=== PATIENT | female | born 1985 | race African-American/Black ===

== ENCOUNTER → 2017-02-16 | Outpatient (CLI) | payer OTHER ==
[2017-02-16 13:52] LABS: AUTOMATED NEUTROPHIL # 4.9 TH/MM3 (1.8-7.7); BASOPHIL % 0.3 % (0.0-2.0); EOSINOPHIL # 0.1 TH/MM3 (0-0.4); HEMATOCRIT 25.8 % (35.0-46.0); HEMO FLAGS DIFF FINAL; LYMPH % 21.3 % (9.0-44.0); LYMPHOCYTE # 1.5 TH/MM3 (1.0-4.8); MEAN CELL VOLUME 69.4 FL (80.0-100.0); MEAN CORPUSCULAR HEMOGLOBIN 22.5 PG (27.0-34.0); MEAN CORPUSCULAR HGB CONC 32.4 % (32.0-36.0); MONO % 6.5 % (0.0-8.0); NEUT % 69.9 % (16.0-70.0); PLATELET COUNT 274 TH/MM3 (150-450); RED BLOOD COUNT 3.72 MIL/MM3 (4.00-5.30); RED CELL DISTRIBUTION WIDTH 17.4 % (11.6-17.2)
[2017-02-16 14:21] LABS: RUBELLA IGG ANTIBODY 71.4 IU/mL (10.0-500.0); RUBELLA STATUS IMMUNE (IMMUNE)
[2017-02-18 19:51] LABS: HIV 1/2 AG AB NON-REACTIVE (NONREACTIVE)
[2017-02-24 08:27] LABS: BATH SALTS (MDPV) UR NEG (NEG); ECSTASY (MDMA) UR NEG (NEG); HEROIN (6-ACETYLMORPHINE) UR NEG (NEG); K2 SPICE UR NEG (NEG); OBGABAPENTIN UR NEG (NEG); OBHYDROMORPHONE U NEG (NEG); OBMETHADONE UR NEG (NEG); PHENCYCLIDINE URINE NEG (NEG)
== END ==
LOC: CLAB 02-02 09:58
PROVIDERS: ATTEND Obstetrics & Gynecology
DX: Z34.81 Encounter for supervision of other normal pregnancy, first trimester (principal)
CPT/HCPCS: 36415; 80307; 83020; 85025; 86592; 86762; 86850; 86900; 86901; 87086; 87340; G0481

== ENCOUNTER → 2017-06-26 | Outpatient (CLI) | payer MEDICAID | LOC: HPND 13:11 | PROVIDERS: ATTEND Obstetrics & Gynecology | DX: O36.60X0 Maternal care for excessive fetal growth, unspecified trimester, not applicable or unspecified (principal) | CPT/HCPCS: 76816 ==

== ENCOUNTER 2017-07-28 09:54 | Inpatient (IN) | payer MEDICAID ==
[~2017-07-28] VITALS: Ht 165.1 cm; Wt 93.0 kg
[2017-07-28] MEDS ORDERED: LACTATED RINGER'S 1000 ML INJ 1,000 ML IV ONE (10:03)
[2017-07-28] MEDS ORDERED: LACTATED RINGER'S 1000 ML INJ 1,000 ML IV SCH ×2 (10:33→19:35)
[2017-07-28 10:54] LABS: AUTOMATED NEUTROPHIL # 3.3 TH/MM3 (1.8-7.7); BASOPHIL % 0.2 % (0.0-2.0); EOSINOPHIL # 0.1 TH/MM3 (0-0.4); EOSINOPHIL % 2.2 % (0.0-4.0); HEMATOCRIT 35.8 % (35.0-46.0); HEMOGLOBIN 11.9 GM/DL (11.6-15.3); LYMPH % 23.4 % (9.0-44.0); LYMPHOCYTE # 1.2 TH/MM3 (1.0-4.8); MEAN CELL VOLUME 81.5 FL (80.0-100.0); MEAN CORPUSCULAR HEMOGLOBIN 27.1 PG (27.0-34.0); MEAN CORPUSCULAR HGB CONC 33.3 % (32.0-36.0); MEAN PLATELET VOLUME 8.6 FL (7.0-11.0); MONO % 8.8 % (0.0-8.0); MONOCYTE # 0.4 TH/MM3 (0-0.9); NEUT % 65.4 % (16.0-70.0); PLATELET COUNT 249 TH/MM3 (150-450); RED BLOOD COUNT 4.39 MIL/MM3 (4.00-5.30); RED CELL DISTRIBUTION WIDTH 15.1 % (11.6-17.2)
[2017-07-28 10:59] LABS: AMORPHOUS SEDIMENT, URINE RARE; BACTERIA, URINE FEW /hpf; BILIRUBIN, URINE NEG (NEG); BLOOD, URINE NEG (NEG); GLUCOSE,URINE NEG (NEG); KETONE, URINE 10 mg/dL (NEG); NITRITE,URINE NEG (NEG); SQUAMOUS EPITHELIAL CELL URINE 31 /hpf (0-5); URINE COLOR YELLOW (YELLW/STRAW); URINE LEUKOCYTE ESTERASE LARGE (NEG)
[2017-07-28] MEDS ORDERED: ceFAZolin 2 GM PREMIX 50 ML IV SCH (11:15)
[2017-07-28 11:39] LABS: TEARDROP RBCS 1+ (NORMAL)
[2017-07-28] MEDS ORDERED: CITRIC ACID-SODIUM CITRATE LIQ 30 ML UDC PO SCH (11:45)
[2017-07-28] MEDS ORDERED: MORPHINE SULFATE PF 5 MG/10 ML VIAL ONE (12:47)
[2017-07-28] MEDS ORDERED: ACETAMINOPHEN 1000 MG/100 ML 100 ML IV ONE (12:48)
[2017-07-28] MEDS ORDERED: METOCLOPRAMIDE HCL 10 MG/2 ML VIAL ONE (12:48)
[2017-07-28] MEDS ORDERED: MORPHINE SULFATE 4 MG/ML INJ IV PUSH PRN (14:45)
[2017-07-28] MEDS ORDERED: ZOLPIDEM TARTRATE 5 MG TAB PO PRN (14:45)
[2017-07-28] MEDS ORDERED: ONDANSETRON ODT 4 MG TAB PO PRN (14:45)
[2017-07-28] MEDS ORDERED: SIMETHICONE 80 MG CHEWABLE TAB PO PRN (14:45)
[2017-07-28] MEDS ORDERED: ACETAMINOPHEN 325 MG TAB PO PRN (14:45)
[2017-07-28] MEDS ORDERED: SODIUM CHLORIDE 0.9% FLUSH 10 ML FLUSH IV FLUSH PRN (14:45)
[2017-07-28] MEDS ORDERED: OXYTOCIN 30 UNITS-500ML PREMIX 500 ML IV ONE (14:45)
[2017-07-28] MEDS ORDERED: oxyCODONE/ACETAMINOPHEN 5 MG/325 MG TAB PO PRN (14:45)
[2017-07-28] MEDS ORDERED: KETOROLAC TROMETHAMINE 60 MG/2 ML (IM) VIAL IM PRN ×2 (14:45)
--- NOTE | 2017-07-28 14:53 | HHI.HP ---
HPI Chief Complaint Repeat Date Seen: July 28, 2017 Travel History International Travel<30 Days: No Contact w/Intl Traveler<30Days: No Known Affected Area: No History of Present Illness HPI Patient is a 32 year old at 39-0/7 weeks gestation who presents today for repeat . She denies any vaginal bleeding or discharge. No gush or leaking of fluid. Positive movement. History Past Medical History Medical History: Denies Significant Hx Obstetric History Obstetric History 2007, 2010 Past Surgical History Narrative Surgical 2007, 2010 Family History Family History: Negative Social History Alcohol Use: No Tobacco Use: No Substance Abuse: No Allergies-Medications (Allergen,Severity, Reaction): Coded Allergies: No Known Allergies (Unverified , 07/28/17) Review of Systems Except as stated in HPI: all other systems reviewed are Neg General / Constitutional: No: Fever, Chills Eyes: No: Blurred Vision, Visual changes HENT: No: Headaches Cardiovascular: No: Chest Pain or Discomfort, Palpitations Respiratory: No: Cough, Short of Breath Gastrointestinal: No: Nausea, Vomiting Genitourinary: No: Pelvic Pain, Discharge, Vaginal Bleeding Musculoskeletal: No: Edema Psychiatric: No: Substance Abuse Physical Exam Narrative GENERAL: Well-nourished, well-developed patient. SKIN: Warm and dry. HEAD: Normocephalic and atraumatic. EYES: No scleral icterus. No injection or drainage. ENT: No nasal drainage noted. Mucous membranes pink. Airway patent. NECK: Supple, trachea midline. No JVD. CARDIOVASCULAR: Regular rate and rhythm without murmurs, gallops, or rubs. RESPIRATORY: Breath sounds equal bilaterally. No accessory muscle use. ABDOMEN/GI: Abdomen soft, non-tender, bowel sounds present, no rebound, no guarding Gravid to 39 weeks size GENITOURINARY: Presentation: vertex Membranes: intact Uterine Contractions: occ FHT's: Category: I Baseline: 135 Reactive: + Variability: moderate Decels: none EXTREMITIES: No cyanosis or edema. BACK: Nontender without obvious deformity. No CVA tenderness. NEUROLOGICAL: Awake and alert. Motor and sensory grossly within normal limits. Normal speech. Caprini VTE Risk Assessment Caprini VTE Risk Assessment: No/Low Risk (score <= 1) Caprini Risk Assessment Model Point Value = 1 Point Value = 2 Point Value = 3 Point Value = 5 Age 41-60 Minor surgery BMI > 25 kg/m2 Swollen legs Varicose veins or History of unexplained or recurrent spontaneous Oral contraceptives or hormone replacement Sepsis (< 1 month) Serious lung disease, including pneumonia (< 1 month) Abnormal pulmonary function Acute myocardial infarction Congestive heart failure (< 1 month) History of inflammatory bowel disease Medical patient at bed rest Age 61-74 Arthroscopic surgery Major open surgery (> 45 min) Laparoscopic surgery (> 45 min) Malignancy Confined to bed (> 72 hours) Immobilizing plaster cast Central venous access Age >= 75 History of VTE Family history of VTE Factor V Leiden Prothrombin [id number] Lupus anticoagulant Anticardiolipin antibodies Elevated serum homocysteine Heparin-induced thrombocytopenia Other congenital or acquired thrombophilia Stroke (< 1 month) Elective arthroplasty Hip, pelvis, or leg fracture Acute spinal cord injury (< 1 month) Prophylaxis Regimen Total Risk Factor Score Risk Level Prophylaxis Regimen 0-1 Low Early ambulation 2 Moderate Order ONE of the following: *Sequential Compression Device (SCD) *Heparin 5000 units SQ BID 3-4 Higher Order ONE of the following medications: *Heparin 5000 units SQ TID *Enoxaparin/Lovenox 40 mg SQ daily (WT < 150 kg, CrCl > 30 mL/min) *Enoxaparin/Lovenox 30 mg SQ daily (WT < 150 kg, CrCl > 10-29 mL/min) *Enoxaparin/Lovenox 30 mg SQ BID (WT < 150 kg, CrCl > 30 mL/min) AND/OR *Sequential Compression Device (SCD) 5 or more Highest Order ONE of the following medications: *Heparin 5000 units SQ TID (Preferred with Epidurals) *Enoxaparin/Lovenox 40 mg SQ daily (WT < 150 kg, CrCl > 30 mL/min) *Enoxaparin/Lovenox 30 mg SQ daily (WT < 150 kg, CrCl > 10-29 mL/min) *Enoxaparin/Lovenox 30 mg SQ BID (WT < 150 kg, CrCl > 30 mL/min) AND *Sequential Compression Device (SCD) Data Data Vital Signs Reviewed: Yes Orders Orders Admit To Inpatient (07/28/17 ) Code Status (07/28/17 10:03) Lactated Ringer's 1000 Ml Inj (Lr 1000 M (07/28/17 10:03) Lactated Ringer's 1000 Ml Inj (Lr 1000 M (07/28/17 10:33) Cefazolin 2 Gm Premix (Ancef 2 Gm Premix (07/28/17 11:15) Citric Acid-Sodium Citrate Liq (Bicitra (07/28/17 11:45) Type And Screen (07/28/17 10:03) Complete Blood Count With Diff (07/28/17 10:03) Urinalysis - C+S If Indicated (07/28/17 10:03) Drug Screen, Random Urine (07/28/17 10:03) Inpatient Certification (07/28/17 ) Morphine Pf Inj (Duramorph Pf 0.5 Mg/Ml (07/28/17 12:47) Metoclopramide Inj (Reglan Inj) (07/28/17 12:48) Acetaminophen 1000 Mg/100 Ml (Ofirmev 10 (07/28/17 12:48) Vital Signs (Adult) Q4HX24,Q12H (07/28/17 14:35) Activity Bed Rest (07/28/17 14:35) ^ Discontinue (07/29/17 14:35) Remove Dressing (07/29/17 14:35) ^ Binder (07/28/17 ) ^ Rhogam (07/28/17 14:35) Diet Regular Basic (07/28/17 Dinner) Lactated Ringer's 1000 Ml Inj (Lr 1000 M (07/28/17 19:35) Oxytocin 30 Units-500ml Premix (Pitocin (07/28/17 14:45) Oxytocin 30 Units-500ml Premix (Pitocin (07/28/17 19:45) Sodium Chloride 0.9% Flush (Ns Flush) (07/28/17 21:00) Sodium Chloride 0.9% Flush (Ns Flush) (07/28/17 14:45) Simethicone Chew (Mylicon Chew) (07/28/17 14:45) Acetaminophen (Tylenol) (07/28/17 14:45) Ibuprofen (Motrin) (07/28/17 14:45) Ketorolac Inj (Toradol Inj) (07/28/17 14:45) Ketorolac Inj (Toradol Inj) (07/28/17 14:45) Oxycodone-Acetamin 5-325 Mg (Percocet (07/28/17 14:45) Oxycodone-Acetamin 5-325 Mg (Percocet (07/28/17 14:45) Cefazolin Inj (Ancef Inj) (07/28/17 14:45) Docusate Sodium-Senna (Nataliia-Colace) (07/28/17 14:45) Zolpidem (Ambien) (07/28/17 14:45) Pxulsxg-Autly-Xpqerop Inj (M-M-R Ii Inj) (07/29/17 16:00) Trng-Cdc-Lqogcn (Booster) Inj (Boostrix (07/29/17 16:00) Complete Blood Count With Diff (07/29/17 06:00) Remove Urinary Catheter .ONCE (07/29/17 14:35) Ondansetron Odt (Zofran Odt) (07/28/17 14:45) Morphine Inj (Morphine Inj) (07/28/17 14:45) Group B Strep: Positive Labs Laboratory Tests Test 07/28/17 10:25 White Blood Count 5.0 Red Blood Count 4.39 Hemoglobin 11.9 Hematocrit 35.8 Mean Corpuscular Volume 81.5 Mean Corpuscular Hemoglobin 27.1 Mean Corpuscular Hemoglobin Concent 33.3 Red Cell Distribution Width 15.1 Platelet Count 249 Mean Platelet Volume 8.6 Neutrophils (%) (Auto) 65.4 Lymphocytes (%) (Auto) 23.4 Monocytes (%) (Auto) 8.8 Eosinophils (%) (Auto) 2.2 Basophils (%) (Auto) 0.2 Neutrophils # (Auto) 3.3 Lymphocytes # (Auto) 1.2 Monocytes # (Auto) 0.4 Eosinophils # (Auto) 0.1 Basophils # (Auto) 0.0 CBC Comment AUTO DIFF Differential Comment AUTO DIFF CONFIRMED Platelet Estimate NORMAL Platelet Morphology Comment NORMAL Tear Drop Cells 1+ Urine Color YELLOW Urine Turbidity HAZY Urine pH 7.0 Urine Specific Kirby 1.008 Urine Protein TRACE Urine Glucose (UA) NEG Urine Ketones 10 Urine Occult Blood NEG Urine Nitrite NEG Urine Bilirubin NEG Urine Urobilinogen LESS THAN 2.0 Urine Leukocyte Esterase LARGE Urine RBC 1 Urine WBC 6 Urine Squamous Epithelial Cells 31 Urine Amorphous Sediment RARE Urine Bacteria FEW Microscopic Urinalysis Comment CULT NOT INDICATED Urine Opiates Screen NEG Urine Barbiturates Screen NEG Urine Amphetamines Screen NEG Urine Benzodiazepines Screen NEG Urine Cocaine Screen NEG Urine Cannabinoids Screen NEG Assessment/Plan Assessment and Plan 32 year old at 39-0/7 weeks gestation. 1. IUP- Category I tracing, reassuring. 2. Repeat - prior x 2. 3. GBS positive. Katy Mabry Dr., MD R3 July 28, 2017 14:53
[2017-07-28] MEDS ORDERED: OXYTOCIN 30 UNITS-500ML PREMIX 500 ML ONE (15:00)
[2017-07-28] MEDS ORDERED: KETOROLAC TROMETHAMINE 60 MG/2 ML (IM) VIAL IM ONE (15:00)
--- NOTE | 2017-07-28 15:05 | PD.OP ---
Operative Report Date of Surgery: July 28, 2017 Preoperative Diagnosis: Postoperative Diagnosis: Procedure: Repeat Low Transverse Section Anesthesia: Spinal Surgeon: Fernando Grijalva MD Natural Resources Specialist(s): Lucie Henry Resident Surgeon: Katy Maldonado MD Operation and Findings: PREOPERATIVE DIAGNOSIS: 1. Intrauterine at 39 weeks gestation. 2. Repeat POSTOPERATIVE DIAGNOSIS: 1. Intrauterine at 39 weeks gestation. 2. Repeat . OPERATION: 1. Repeat low transverse section. ANESTHESIA: Spinal. SURGEON: Esdras Grijalva MD. COSURGEON: Katy Maldonado MD R3. FINDINGS: A normal male with APGARS of 8 and 9, weight 3950g. The uterus was normal. The tubes were normal in length and caliber, the ovaries were normal. The cul-de-sac was normal. COMPLICATIONS: None. COUNTS: The counts were correct. ESTIMATED BLOOD LOSS: 750 cc. FLUIDS: Crystalloids. FINDINGS: The patient tolerated the procedure well, went to the Recovery Room in good condition. PROCEDURE: She was taken to the operating room, identified by name band and verbally given a spinal anesthetic and under adequate level she was prepped and draped in the usual sterile manner for a section. A time out was taken and once agreed upon a Pfannenstiel incision was made and the old scar removed. The incision was taken down to the fascia, the fascia was taken off the rectus muscle by blunt and sharp dissection. The rectus muscles were spread bluntly and the peritoneum was entered under direct vision after reduction of scar tissue. The incision was extended with care to avoid the urinary bladder. The bladder blade was placed and the bladder flap was created in the usual fashion. A transverse incision along the lower uterine segment was made and bluntly extended. The head was delivered with some difficulty, as scar tissue made the soft tissue difficult to extend. Gentle fundal pressure was applied and a Kiwi Vacuum was applied. After one pull with the Vacuum, the uterine incision was extended laterally with bandage scissors. The Vacuum was then reapplied and the head was delivered. The rest of the body was then delivered without difficulty. Cord clamping was delayed for 45 seconds and then the baby was handed to the baby nurse. Cord blood was obtained and the placental was delivered manually. The uterus was exteriorized and curettaged twice with the wet lap. The uterine incision was then repaired with the 0 Vicryl in a running fashion, the second layer imbricating the first with excellent results. Hemostasis was achieved with several figure of eight sutures and hemostasis was excellent. The cul-de-sac was cleaned of blood and debris. An attempt was made to deliver the uterus back into the abdomen, however this proved to be very difficult. The skin and fascial incisions were extended laterally, and the muscle was dissected laterally as well in order to create room for the uterus to be placed back into the abdomen. All incisions and pedicles were then inspected and were hemostatic. The rectus muscle was reapproximated with 0 Vicryl in a running fashion. The fascia was repaired with 0 Vicryl in a running fashion. The subcutaneous was repaired with 2-0 Vicryl and the skin was repaired with 4-0 Monocryl in a subcuticular manner. A pressure dressing was applied. The patient tolerated the procedure well and went to the recovery room in good condition. All counts were correct. Katy Maldonado MD R3 July 28, 2017 15:05
[2017-07-28] MEDS ORDERED: EPIDURAL-DO NOT ADMINISTER ANTICOAGULANTS PRN (17:15)
[2017-07-28] MEDS ORDERED: EPIDURAL-NO SYSTEMIC NARCOTICS PRN (17:15)
[2017-07-28] MEDS ORDERED: EPIDURAL-DIPHENHYDRAMINE HCL 50 MG CAP PO PRN (17:15)
[2017-07-28] MEDS ORDERED: EPIDURAL-NALOXONE HCL 0.4 MG/ML AMP IV PUSH PRN (17:15)
[2017-07-28] MEDS ORDERED: EPIDURAL-DIPHENHYDRAMINE HCL 50 MG/ML VIAL IV PUSH PRN (17:15)
[2017-07-28] MEDS ORDERED: OXYTOCIN 30 UNITS-500ML PREMIX 500 ML IV PRN (19:45)
[2017-07-28] MEDS: ceFAZolin 2 GM PREMIX 50 ML IV SCH (20:25)
[2017-07-28] MEDS ORDERED: SODIUM CHLORIDE 0.9% FLUSH 10 ML FLUSH IV FLUSH SCH (21:00)
[2017-07-29] MEDS: DOCUSATE SODIUM 50 MG/SENNA 8.6 MG TAB PO PRN ×2 (02:09→22:26)
[2017-07-29] MEDS: IBUPROFEN 600 MG TAB PO PRN ×3 (02:09→18:23)
[2017-07-29] MEDS: ceFAZolin 2 GM PREMIX 50 ML IV SCH (03:56)
[2017-07-29 06:17] LABS: AUTOMATED NEUTROPHIL # 9.7 TH/MM3 (1.8-7.7); BASOPHIL % 0.1 % (0.0-2.0); EOSINOPHIL % 0.4 % (0.0-4.0); HEMATOCRIT 30.3 % (35.0-46.0); HEMOGLOBIN 10.4 GM/DL (11.6-15.3); LYMPH % 11.3 % (9.0-44.0); LYMPHOCYTE # 1.4 TH/MM3 (1.0-4.8); MEAN CELL VOLUME 81.6 FL (80.0-100.0); MEAN CORPUSCULAR HEMOGLOBIN 27.9 PG (27.0-34.0); MEAN CORPUSCULAR HGB CONC 34.3 % (32.0-36.0); MEAN PLATELET VOLUME 8.6 FL (7.0-11.0); NEUT % 80.2 % (16.0-70.0); PLATELET COUNT 212 TH/MM3 (150-450); RED BLOOD COUNT 3.72 MIL/MM3 (4.00-5.30); RED CELL DISTRIBUTION WIDTH 14.1 % (11.6-17.2); WHITE BLOOD COUNT 12.1 TH/MM3 (4.0-11.0)
--- NOTE | 2017-07-29 10:40 | HHI.OB ---
Subjective Post Operative Day: 1 Remarks doing well with mild pain no nausea Objective Result Diagram: 07/29/17 0550 Objective Remarks GENERAL: Well-nourished, well-developed patient. CARDIOVASCULAR: Regular rate and rhythm without murmurs, gallops, or rubs. RESPIRATORY: Breath sounds equal bilaterally. No accessory muscle use. ABDOMEN/GI: Abdomen soft, non-tender, bowel sounds present. pressure bandage Clean, dry and intact. Fundus: Firm, non-tender at umbilicus. GENITOURINARY: Light to moderate bleeding. EXTREMITIES: No cyanosis or edema, non-tender, without signs of DVT. Medications and IVs Current Medications Medications (Trade) Dose Ordered Sig/Yarelis Route Start Time Stop Time Status Last Admin Lactated Ringer's 1,000 ml @ 100 mls/hr Q10H IV 07/28/17 19:35 07/29/17 15:34 07/28/17 20:25 Oxytocin 500 ml @ 100 mls/hr UNSCH X1 PRN IV 07/28/17 19:45 07/29/17 19:44 (NS Flush) 2 ml BID IV FLUSH 07/28/17 21:00 (NS Flush) 2 ml UNSCH PRN IV FLUSH 07/28/17 14:45 (Mylicon Chew) 80 mg QID PRN PO 07/28/17 14:45 (Tylenol) 650 mg Q6H PRN PO 07/28/17 14:45 (Motrin) 600 mg Q6H PRN PO 07/28/17 14:45 07/29/17 02:09 (Toradol Inj) 60 mg UNSCH X1 PRN IM 07/28/17 14:45 07/29/17 14:44 07/28/17 15:06 (Toradol Inj) 30 mg Q6H PRN IM 07/28/17 14:45 07/29/17 14:44 (Percocet 5-325 Mg) 1 tab Q4H PRN PO 07/28/17 14:45 (Percocet 5-325 Mg) 2 tab Q4H PRN PO 07/28/17 14:45 (Nataliia-Colace) 2 tab Q12H PRN PO 07/28/17 14:45 07/29/17 02:09 (Ambien) 5 mg HS PRN PO 07/28/17 14:45 (M-M-R Ii Inj) 0.5 ml ONCE ONCE SQ 07/29/17 16:00 07/29/17 16:01 (Boostrix Inj) 0.5 ml ONCE ONCE IM 07/29/17 16:00 07/29/17 16:01 (Zofran Odt) 4 mg Q6H PRN PO 07/28/17 14:45 (Morphine Inj) 4 mg Q2HR PRN IV PUSH 07/28/17 14:45 ([facility] Nursing Information) NO SYSTEMIC NARCOTICS TO BE GIVEN FO... UNSCH PRN .XX 07/28/17 17:15 07/29/17 17:14 (Narcan Inj) 0.4 mg UNSCH PRN IV PUSH 07/28/17 17:15 07/29/17 17:14 (Benadryl Inj) 25 mg Q6H PRN IV PUSH 07/28/17 17:15 07/29/17 17:14 (Benadryl) 50 mg Q6H PRN PO 07/28/17 17:15 07/29/17 17:14 07/29/17 02:06 ([facility] Nursing Information) ALL NURSING DEPARTMENTS UNSCH PRN .XX 07/28/17 17:15 07/29/17 17:14 Assessment/Plan Assessment and Plan 32 year old at 39-0/7 weeks gestation. 1. IUP- Category I tracing, reassuring. 2. Repeat - prior x 2. 3. GBS positive. dw Dr. Grijalva 07/29/17 Take bandage off in shower ambulate BPs and Hct good anticipate discharge monday or monday Kylie Guaman MD July 29, 2017 10:40
[2017-07-29] MEDS ORDERED: DIPHTH/TETANUS/ACEL PERTUSSIS (BOOSTER) 0.5 ML VIAL/PFS IM ONE (16:00)
[2017-07-29] MEDS ORDERED: MEASLES, MUMPS, RUBELLA VACCINE 0.5 ML VIAL SQ ONE (16:00)
[2017-07-29] MEDS: oxyCODONE/ACETAMINOPHEN 5 MG/325 MG TAB PO PRN (18:25)
[2017-07-30] MEDS: IBUPROFEN 600 MG TAB PO PRN (00:19)
[2017-07-30] MEDS: oxyCODONE/ACETAMINOPHEN 5 MG/325 MG TAB PO PRN (04:47)
--- NOTE | 2017-07-30 10:19 | HHI.OB ---
Subjective Post Operative Day: 2 Remarks Mom and baby doing well ready for discharge nursing well answered questions about circumcision Objective Result Diagram: 07/29/17 0550 Objective Remarks GENERAL: Well-nourished, well-developed patient. CARDIOVASCULAR: Regular rate and rhythm without murmurs, gallops, or rubs. RESPIRATORY: Breath sounds equal bilaterally. No accessory muscle use. ABDOMEN/GI: Abdomen soft, non-tender, bowel sounds present. pressure bandage Clean, dry and intact. Fundus: Firm, non-tender at umbilicus. GENITOURINARY: Light to moderate bleeding. EXTREMITIES: No cyanosis or edema, non-tender, without signs of DVT. Medications and IVs Current Medications Medications (Trade) Dose Ordered Sig/Yarelis Route Start Time Stop Time Status Last Admin (NS Flush) 2 ml BID IV FLUSH 07/28/17 21:00 (NS Flush) 2 ml UNSCH PRN IV FLUSH 07/28/17 14:45 (Mylicon Chew) 80 mg QID PRN PO 07/28/17 14:45 (Tylenol) 650 mg Q6H PRN PO 07/28/17 14:45 (Motrin) 600 mg Q6H PRN PO 07/28/17 14:45 07/30/17 00:19 (Percocet 5-325 Mg) 1 tab Q4H PRN PO 07/28/17 14:45 07/29/17 22:27 (Percocet 5-325 Mg) 2 tab Q4H PRN PO 07/28/17 14:45 07/30/17 04:47 (Nataliia-Colace) 2 tab Q12H PRN PO 07/28/17 14:45 07/29/17 22:26 (Ambien) 5 mg HS PRN PO 07/28/17 14:45 (Zofran Odt) 4 mg Q6H PRN PO 07/28/17 14:45 (Morphine Inj) 4 mg Q2HR PRN IV PUSH 07/28/17 14:45 Assessment/Plan Assessment and Plan 32 year old at 39-0/7 weeks gestation. 1. IUP- Category I tracing, reassuring. 2. Repeat - prior x 2. 3. GBS positive. fan Grijalva 07/29/17 Take bandage off in shower ambulate BPs and Hct good anticipate discharge monday or monday Discharge Planning POD 2 doing very well and ready for discharge will discuss circumcision with Dr. robb Guaman,Kylie Knox MD July 30, 2017 10:18
[2017-07-30] MEDS ORDERED: OXYC1TAB63 PO (10:20)
--- NOTE | 2017-07-30 10:20 | HHI.DCPOC ---
Discharge Care Plan Report Symptoms to Your Doctor -Temperature above 100.5 degrees -Redness, of incision or excessive or foul smelling drainage -Unusual pain or calf pain -Increased vaginal bleeding -Painful or difficulty urinating -Feelings of extreme sadness or anxiety after 2 weeks Goals to Promote Your Health * To prevent worsening of your condition and complications * To maintain your health at the optimal level Directions to Meet Your Goals Take your medications as prescribed Follow your dietary instruction Follow activity as directed Ensure plenty of rest for recovery Drink fluids for hydration Keep your appointments as scheduled Take your immunizations and boosters as scheduled If your symptoms worsen call your PCP, if no PCP go to Urgent Care Center or Emergency Room Smoking is Dangerous to Your Health. Avoid second hand smoke Call the 24-hour crisis hotline for domestic abuse at Kylie Guaman MD July 30, 2017 10:20
== END 2017-07-30 12:24 | disposition home or self-care (01) | DRG 766 ==
LOC: H2EB 09:54 → H1EA 15:47
PROVIDERS: ADMIT Obstetrics & Gynecology; ATTEND Obstetrics & Gynecology
PROC: 10D00Z1 Extraction of Products of Conception, Low, Open Approach (ICD-10-PCS; principal; 2017-07-28)
DX: O34.211 Maternal care for low transverse scar from previous cesarean delivery (principal); O99.824 Streptococcus B carrier state complicating childbirth; Z37.0 Single live birth; Z3A.39 39 weeks gestation of pregnancy
CPT/HCPCS: 59025; 80307; 81001; 85025; 86850; 86900; 86901; J0131; J0690; J1885; J2274; J2590; J2765; J7120; Q0163